=== PATIENT | male | born 1995 | race Caucasian/White ===

== ENCOUNTER 2022-03-27 18:04 | Emergency (ER) | payer SELFPAY ==
[~2022-03-27] VITALS: Ht 172.7 cm; Wt 63.5 kg
--- NOTE | 2022-03-27 18:23 | ED Abdominal Pain ---
General Stated Complaint: ABD PAIN Source of Information: Patient History of Present Illness Date Seen by Provider: Mar 27, 2022 Time Seen by Provider: 18:12 Initial Comments PT ARRIVES VIA POV FROM HOME IN [place], WITH FATHER AND C/O LEFT UPPER QUADRANT PAIN X 1 YEAR--PT IS NOT HAVING ANY PAIN AT THIS TIME. PAIN HAS BEEN WORSE X 2 WEEKS, AND HAS BEEN HAVING "DIARRHEA" X 2 WEEKS STATES HE IS HAVING 1-2 "SOFT" FORMED STOOLS A DAY--THIS IS WHAT HE IS CALLING "DIARRHEA" --NO WATERY STOOLS, AND NO BLACK/BLOODY/TARRY STOOLS PAIN AND DIARRHEA ARE WORSE WITH EATING HAD SOUP AT NOON, NO FOOD SINCE THEN NO NAUSEA/VOMITING NO FEVER NO URINARY SYMPTOMS PT HAS BEEN SEEING DR. ESTEVEZ IN [place] FOR THIS PROBLEM AND HAS HAD AN ULTRASOUND OF HIS GALLBLADDER IN DECEMBER IN [place]--WHICH WAS NORMAL AND DID NOT SHOW ANY STONES, PER PT, AND HAD AN EGD DONE BY DR. ESTEVEZ. HE HAS BEEN REFERRED TO DR. KAPOOR, BUT NO APPOINTMENT HAS BEEN MADE YET. PT HAD BEEN ON PRILOSEC, BUT HAS NOT TAKEN ANY FOR A MONTH--DID NOT IMPROVE SYMPTOMS. STATES HE HAS DONE 2 "GALL BLADDER FLUSHES"--FIRST TIME WAS A MONTH AGO, AND ANOTHER ONE 2 WEEKS AGO THESE CONSIST OF DRINKING EPSOM SALTS, THEN OLIVE OIL, THEN GRAPEFRUIT JUICE STATES HE "PASSED 10 GALLSTONES" RECTALLY AFTER DOING THIS, BUT NO IMPROVEMENT IN HIS SYMPTOMS PT HAS NOT HAD ANY PRIOR MEDICAL PROBLEMS OR ANY SURGERIES. PCP: DR. ESTEVEZ IN [place], [place] Allergies and Home Medications Allergies Coded Allergies: No Known Drug Allergies (Unverified , 03/27/22) Patient Home Medication List Dicyclomine HCl (Dicyclomine HCl) 20 Mg Tablet, 20 MG PO Q6H Prescribed by: PEDRITO HUSTON on 03/27/221919 L. Acidophilus/Pectin, [place] (Acidophilus Capsule) 7.5 Mg (30 Million Cell)-100 Mg Capsule, 2 EACH PO QID Prescribed by: PEDRITO HUTSON on 03/27/221919 Review of Systems Review of Systems Constitutional: no symptoms reported Respiratory: No Symptoms Reported Cardiovascular: No Symptoms Reported Gastrointestinal: See HPI, Abdominal Pain, Diarrhea Genitourinary: No Symptoms Reported Musculoskeletal: no symptoms reported Skin: no symptoms reported Psychiatric/Neurological: No Symptoms Reported Endocrine: No Symptoms Reported Hematologic/Lymphatic: No Symptoms Reported Past Evhmdyl-Qxwora-Hzqdyr Hx Patient Social History Tobacco Use?: No Smoking Status: Never a Smoker Substance use?: No Alcohol Use?: No Past Medical History Surgeries: Yes (EGD) Respiratory: No Cardiac: No Neurological: No Genitourinary: No Gastrointestinal: Yes (ABDOMINAL PAIN X 1 YEAR-NO DX) Musculoskeletal: No Endocrine: No HEENT: No Cancer: No Psychosocial: No Integumentary: No Blood Disorders: No Physical Exam Vital Signs Vital Signs - First Documented 03/27/22 18:08 Temp 36.8 Pulse 68 Resp 16 B/P (MAP) 133/75 (94) Pulse Ox 98 O2 Delivery Room Air Capillary Refill : Height/Weight/BMI Height: '" Weight: lbs. oz. kg; BMI Method: General Appearance: WD/WN, no apparent distress, thin, other (WALKS UPRIGHT AND MOVES WITHOUT DIFFICULTY; FILTHY AND [id number]) HEENT: PERRL/EOMI; No scleral icterus (R), No scleral icterus (L), No pale conjunctivae (R), No pale conjunctivae (L) Neck: normal inspection Respiratory: normal breath sounds, no respiratory distress, no accessory muscle use Cardiovascular: regular rate, rhythm, no edema, no murmur Gastrointestinal: normal bowel sounds, non tender, soft, no organomegaly, no pulsatile mass; No distended, No guarding, No rebound, No tenderness, No hernia, No mass Extremities: normal inspection Back: no CVA tenderness 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, no motor/sensory deficits, alert, normal mood/affect, oriented x 3 Skin: normal color, warm/dry Progress/Results/Core Measures Results/Orders Lab Results Laboratory Tests Test 03/27/22 18:15 03/27/22 19:06 Range/Units White Blood Count 6.8 4.3-11.0 10^3/uL Red Blood Count 5.12 4.30-5.52 10^6/uL Hemoglobin 15.9 13.3-17.7 g/dL Hematocrit 45 40-54 % Mean Corpuscular Volume 88 80-99 fL Mean Corpuscular Hemoglobin 31 25-34 pg Mean Corpuscular Hemoglobin Concent 35 32-36 g/dL Red Cell Distribution Width 12.3 10.0-14.5 % Platelet Count 206 130-400 10^3/uL Mean Platelet Volume 10.0 9.0-12.2 fL Immature Granulocyte % (Auto) 0 % Neutrophils (%) (Auto) 64 42-75 % Lymphocytes (%) (Auto) 26 12-44 % Monocytes (%) (Auto) 8 0-12 % Eosinophils (%) (Auto) 2 0-10 % Basophils (%) (Auto) 1 0-10 % Neutrophils # (Auto) 4.4 1.8-7.8 10^3/uL Lymphocytes # (Auto) 1.7 1.0-4.0 10^3/uL Monocytes # (Auto) 0.5 0.0-1.0 10^3/uL Eosinophils # (Auto) 0.1 0.0-0.3 10^3/uL Basophils # (Auto) 0.1 0.0-0.1 10^3/uL Immature Granulocyte # (Auto) 0.0 0.0-0.1 10^3/uL Sodium Level 140 135-145 MMOL/L Potassium Level 4.1 3.6-5.0 MMOL/L Chloride Level 104 98-107 MMOL/L Carbon Dioxide Level 24 21-32 MMOL/L Anion Gap 12 5-14 MMOL/L Blood Urea Nitrogen 12 7-18 MG/DL Creatinine 0.85 0.60-1.30 MG/DL Estimat Glomerular Filtration Rate 124 BUN/Creatinine Ratio 14 Glucose Level 96 70-105 MG/DL Calcium Level 9.6 8.5-10.1 MG/DL Corrected Calcium 9.2 8.5-10.1 MG/DL Magnesium Level 2.0 1.6-2.4 MG/DL Total Bilirubin 0.5 0.1-1.0 MG/DL Aspartate Amino Transf (AST/SGOT) 22 5-34 U/L Alanine Aminotransferase (ALT/SGPT) 20 0-55 U/L Alkaline Phosphatase 64 40-136 U/L C-Reactive Protein High Sensitivity 0.08 0.00-0.50 MG/DL Total Protein 7.1 6.4-8.2 GM/DL Albumin 4.5 3.2-4.5 GM/DL Amylase Level 96 25-125 U/L Lipase 163 H 8-78 U/L Urine Color YELLOW Urine Clarity CLEAR Urine pH 7.5 5-9 Urine Specific [place] 1.010 L 1.016-1.022 Urine Protein NEGATIVE NEGATIVE Urine Glucose (UA) NEGATIVE NEGATIVE Urine Ketones NEGATIVE NEGATIVE Urine Nitrite NEGATIVE NEGATIVE Urine Bilirubin NEGATIVE NEGATIVE Urine Urobilinogen 0.2 < = 1.0 MG/DL Urine Leukocyte Esterase NEGATIVE NEGATIVE Urine RBC (Auto) NEGATIVE NEGATIVE Urine RBC NONE /HPF Urine WBC NONE /HPF Urine Crystals PRESENT H /LPF Urine Amorphous Sediment MOD DENG PHOSPHATE H /LPF Urine Bacteria NEGATIVE /HPF Urine Casts NONE /LPF Urine Mucus NEGATIVE /LPF Urine Culture Indicated NO My Orders Orders - PEDRITO HUSTON DO Ed Iv/Invasive Line Start (03/27/22 18:16) Ct Abdomen/Pelvis W (03/27/22 18:16) Amylase (03/27/22 18:16) Cbc With Automated Diff (03/27/22 18:16) Comprehensive Metabolic Panel (03/27/22 18:16) Hs C Reactive Protein (03/27/22 18:16) Lipase (03/27/22 18:16) Magnesium (03/27/22 18:16) Ua Culture If Indicated (03/27/22 18:16) Erythrocyte Sedimentation Rate (03/27/22 18:16) Ed Iv/Invasive Line Start (03/27/22 18:16) Ed Iv/Invasive Line Start (03/27/22 18:16) Lactated Ringers (Lr 1000 Ml Iv Solution (03/27/22 18:30) Iohexol Injection (Omnipaque 350 Mg/Ml 1 (03/27/22 18:30) Ns (Ivpb) (Sodium Chloride 0.9% Ivpb Bag (03/27/22 18:30) Medications Given in ED Current Medications Medications Dose Ordered Sig/Be Route Start Time Stop Time Status Last Admin Dose Admin Iohexol 100 ml ONCE ONCE IV 03/27/22 18:30 03/27/22 18:32 DC 03/27/22 18:32 80 ML Lactated Ringer's 1,000 ml @ 0 mls/hr Q0M ONCE IV 03/27/22 18:30 03/27/22 18:32 DC 03/27/22 18:46 0 MLS/HR Sodium Chloride 100 ml ONCE ONCE IV 03/27/22 18:30 03/27/22 18:32 DC 03/27/22 18:32 80 ML Vital Signs/I&O 03/27/22 18:08 Temp 36.8 Pulse 68 Resp 16 B/P (MAP) 133/75 (94) Pulse Ox 98 O2 Delivery Room Air Progress Progress Note : Progress Note GIVEN IV FLUIDS NO DIARRHEA OR PAIN OR SYMPTOMS OF ANY KIND DURING ER STAY Diagnostic Imaging Comments CT ABDOMEN/PELVIS--PER RADIOLOGIST REPORT AT 1904 FINDINGS: Lung bases demonstrate no finding of pneumonia or edema. There is no pleural or pericardial effusion. The liver demonstrates no evidence of a focal intrahepatic abnormality. The gallbladder is nondistended without radiodense stone or finding of biliary dilatation. The portal veins are patent. Pancreas unremarkable without finding of adjacent fluid or fat stranding. The spleen is normal in size. There is no adrenal mass. The kidneys enhance normally and appear nonobstructed. The stomach is nondistended. There is no finding of abnormal small or large bowel dilation demonstrated. There is moderate stool within the colon without finding of colonic thickening or pericolonic fat stranding. The appendix is normal. The urinary bladder is unremarkable. There is no pelvic free fluid. There is no finding of free air or abscess. There is no pathologic adenopathy. The aorta is normal in caliber. No findings of an acute or suspicious osseous abnormality. IMPRESSION: 1. No CT finding of an acute inflammatory or obstructive process within the abdomen or pelvis. 2. No finding of bowel obstruction, appendicitis or diverticulitis. 3. No hydronephrosis or biliary dilatation. 4. No free fluid, free air or focal inflammation within the omentum or mesentery. Reviewed: Reviewed by Me Departure Impression Primary Impression: Chronic abdominal pain Additional Impression: Change in consistency of stool Disposition: 01 HOME, SELF-CARE Condition: Stable Departure-Patient Inst. Referrals: JUVENTINO KAPOOR DO NO,LOCAL PHYSICIAN (PCP) Primary Care Physician Patient Instructions: Abdominal Pain, Adult ED Add. Discharge Instructions: CLEAR LIQUIDS--WATER, BROTH, JELLO, GATORADE BRATS DIET--BANANAS, RICE, APPLESAUCE, TOAST, SALTINES FOLLOW UP WITH DR. KAPOOR NEXT WEEK--CALL ON TUESDAY MORNING TO SCHEDULE APPOINTMENT. Scripts Dicyclomine HCl (Dicyclomine HCl) 20 Mg Tablet 20 MG PO Q6H for Abdominal Pain, #20 TAB Prov: PEDRITO HUSTON DO 03/27/22 L. Acidophilus/Pectin, [place] (Acidophilus Capsule) 7.5 Mg (30 Million Cell)-100 Mg Capsule 2 EACH PO QID, #40 CAP Prov: PEDRITO HUSTON DO 03/27/22 PEDRITO HUSTON DO Mar 27, 2022 18:23
[2022-03-27 18:30] LABS: BASOPHILS # (AUTO) 0.1 10^3/uL (0.0-0.1); BASOPHILS % (AUTO) 1 % (0-10); EOSINOPHILS # (AUTO) 0.1 10^3/uL (0.0-0.3); EOSINOPHILS % (AUTO) 2 % (0-10); HEMATOCRIT 45 % (40-54); HEMOGLOBIN 15.9 g/dL (13.3-17.7); LYMPHOCYTES # (AUTO) 1.7 10^3/uL (1.0-4.0); LYMPHOCYTES % (AUTO) 26 % (12-44); MEAN CORPUSCULAR HEMOGLOBIN 31 pg (25-34); MEAN CORPUSCULAR HGB CONC 35 g/dL (32-36); MEAN CORPUSCULAR VOLUME 88 fL (80-99); MONOCYTES # (AUTO) 0.5 10^3/uL (0.0-1.0); MONOCYTES % (AUTO) 8 % (0-12); NEUTROPHILS # (AUTO) 4.4 10^3/uL (1.8-7.8); NEUTROPHILS % (AUTO) 64 % (42-75); PLATELET COUNT 206 10^3/uL (130-400); WHITE BLOOD COUNT 6.8 10^3/uL (4.3-11.0)
[2022-03-27] MEDS ORDERED: NS 100 ML (IVPB) BAG IV ONE (18:30)
[2022-03-27] MEDS ORDERED: LACTATED RINGERS 1,000 ML IV ONE (18:30)
[2022-03-27] MEDS ORDERED: IOHEXOL 350 MG/ML 100 ML (OMNIPAQUE 350) VIAL IV ONE (18:30)
[2022-03-27 18:48] LABS: ALBUMIN 4.5 GM/DL (3.2-4.5); BILIRUBIN,TOTAL 0.5 MG/DL (0.1-1.0); CALCIUM 9.6 MG/DL (8.5-10.1); CREATININE SERUM 0.85 MG/DL (0.60-1.30); POTASSIUM 4.1 MMOL/L (3.6-5.0); TOTAL PROTEIN 7.1 GM/DL (6.4-8.2)
--- NOTE | 2022-03-27 18:53 | Diagnostic Imaging Report ---
PROCEDURE: CT abdomen and pelvis with contrast. TECHNIQUE: Multiple contiguous axial images were obtained through the abdomen and pelvis after administration of intravenous contrast. Auto Exposure Controls were utilized during the CT exam to meet ALARA standards for radiation dose reduction. All CT scans use one or more of the following dose optimizing techniques: automated exposure control, MA and/or KvP adjustment based on patient size and exam type or iterative reconstruction. INDICATION: Left upper quadrant pain and diarrhea. COMPARISON: No comparison available. FINDINGS: Lung bases demonstrate no finding of pneumonia or edema. There is no pleural or pericardial effusion. The liver demonstrates no evidence of a focal intrahepatic abnormality. The gallbladder is nondistended without radiodense stone or finding of biliary dilatation. The portal veins are patent. Pancreas unremarkable without finding of adjacent fluid or fat stranding. The spleen is normal in size. There is no adrenal mass. The kidneys enhance normally and appear nonobstructed. The stomach is nondistended. There is no finding of abnormal small or large bowel dilation demonstrated. There is moderate stool within the colon without finding of colonic thickening or pericolonic fat stranding. The appendix is normal. The urinary bladder is unremarkable. There is no pelvic free fluid. There is no finding of free air or abscess. There is no pathologic adenopathy. The aorta is normal in caliber. No findings of an acute or suspicious osseous abnormality. IMPRESSION: 1. No CT finding of an acute inflammatory or obstructive process within the abdomen or pelvis. 2. No finding of bowel obstruction, appendicitis or diverticulitis. 3. No hydronephrosis or biliary dilatation. 4. No free fluid, free air or focal inflammation within the omentum or mesentery. Dictated by: Dictated on workstation # [id number]
[2022-03-27 19:11] LABS: BILIRUBIN,URINE NEGATIVE (NEGATIVE); CLARITY,URINE CLEAR; COLOR,URINE YELLOW; GLUCOSE, URINE (UA) NEGATIVE (NEGATIVE); KETONES,URINE NEGATIVE (NEGATIVE); LEUKOCYTE ESTERASE ,URINE NEGATIVE (NEGATIVE); NITRITE,URINE NEGATIVE (NEGATIVE); PH,URINE 7.5 (5-9); PROTEIN,URINE NEGATIVE (NEGATIVE)
[2022-03-27 19:16] LABS: AMORPHOUS SEDIMENT,UR MOD AMOR PHOSPHATE /LPF; BACTERIA,URINE NEGATIVE /HPF
[2022-03-27] MEDS ORDERED: L. A1CAP11 PO (19:20)
[2022-03-27] MEDS ORDERED: DICY20TA PO (19:20)
[2022-03-27 19:28] LABS: ERYTHROCYTE SEDIMENTATION RATE 1 MM/HR (0-15)
[2022-03-27 19:44] VITALS: BP 123/74
== END 2022-03-27 19:44 | disposition home or self-care (01) ==
LOC: ER 18:06
DX: G89.29 Other chronic pain (principal); R10.12 Left upper quadrant pain; R19.4 Change in bowel habit; Z28.310 Unvaccinated for COVID-19
CPT/HCPCS: 36415; 74177; 80053; 81000; 82150; 83690; 83735; 85025; 85652; 86141

== ENCOUNTER → 2022-04-01 | Outpatient (CLI) | payer OTHER ==
[~2022-04-01] MED LIST: CATHETER FLUSH 10 ML SYR IVP PRN; DICY20TA PO; L. A1CAP11 PO; ONDA4TAB11 SL; PANT40TA2 PO; SUCR1TAB36 PO
--- NOTE | 2022-04-01 09:13 | Diagnostic Imaging Report ---
INDICATION: Epigastric pain. FINDINGS: 5 mCi tech 99M Choletec was given IV. The FINDINGS: There is prompt uptake by the liver. Gallbladder visualizes in a normal fashion. There is free flow of isotope into the small bowel. Following Ensure meal ejection fraction is calculated to be 35% at 60 minutes. IMPRESSION: Normal hepatobiliary study. Dictated by: Dictated on workstation # [id number]
== END ==
LOC: CARD 06:42
PROVIDERS: ATTEND Surgery
DX: R10.13 Epigastric pain (principal)
CPT/HCPCS: 78227; A9537

== ENCOUNTER 2022-04-06 00:32 | Emergency (ER) | payer OTHER ==
[~2022-04-06] VITALS: Ht 172.7 cm; Wt 62.3 kg
[~2022-04-06 00:32] MED LIST changes: -ONDA4TAB11 SL; -PANT40TA2 PO; -SUCR1TAB36 PO
[2022-04-06] MEDS ORDERED: ONDANSETRON 4 MG/2 ML (SDV) Z0FRAN IVP ONE (01:15)
[2022-04-06] MEDS ORDERED: LACTATED RINGERS 1,000 ML IV ONE (01:15)
[2022-04-06] MEDS ORDERED: ANTACID SUSP 30 ML UDC (MYLANTA) PO ONE (01:30)
[2022-04-06] MEDS ORDERED: LIDOCAINE 2% VISCOUS 15 ML UDC PO ONE (01:30)
[2022-04-06 01:33] LABS: BASOPHILS # (AUTO) 0.1 10^3/uL (0.0-0.1); BASOPHILS % (AUTO) 1 % (0-10); EOSINOPHILS # (AUTO) 0.2 10^3/uL (0.0-0.3); EOSINOPHILS % (AUTO) 3 % (0-10); HEMATOCRIT 45 % (40-54); LYMPHOCYTES # (AUTO) 2.2 10^3/uL (1.0-4.0); LYMPHOCYTES % (AUTO) 31 % (12-44); MEAN CORPUSCULAR HEMOGLOBIN 31 pg (25-34); MEAN CORPUSCULAR HGB CONC 35 g/dL (32-36); MEAN CORPUSCULAR VOLUME 88 fL (80-99); MONOCYTES # (AUTO) 0.6 10^3/uL (0.0-1.0); MONOCYTES % (AUTO) 8 % (0-12); NEUTROPHILS # (AUTO) 3.9 10^3/uL (1.8-7.8); NEUTROPHILS % (AUTO) 57 % (42-75); PLATELET COUNT 214 10^3/uL (130-400)
[2022-04-06 01:48] LABS: ALBUMIN 4.6 GM/DL (3.2-4.5); CHLORIDE 103 MMOL/L (98-107); POTASSIUM 3.7 MMOL/L (3.6-5.0); SODIUM 137 MMOL/L (135-145)
[2022-04-06 01:49] LABS: CALCIUM 9.7 MG/DL (8.5-10.1)
[2022-04-06 01:50] LABS: GLUCOSE 91 MG/DL (70-105); TOTAL PROTEIN 7.3 GM/DL (6.4-8.2)
[2022-04-06 01:51] LABS: CARBON DIOXIDE 24 MMOL/L (21-32)
[2022-04-06 01:52] LABS: BILIRUBIN,TOTAL 0.7 MG/DL (0.1-1.0)
[2022-04-06 01:54] LABS: ALKALINE PHOSPHATASE 62 U/L (40-136); CREATININE SERUM 0.98 MG/DL (0.60-1.30); GFR ESTIMATED 110
[2022-04-06 01:55] LABS: BUN/CREATININE RATIO 15
[2022-04-06 01:57] LABS: ALANINE AMINOTRANSFERASE 18 U/L (0-55); LIPASE 19 U/L (8-78)
[2022-04-06] MEDS ORDERED: PANT40TA2 PO (02:37)
[2022-04-06] MEDS ORDERED: SUCR1TAB36 PO (02:37)
[2022-04-06] MEDS ORDERED: ONDA4TAB11 SL (02:37)
--- NOTE | 2022-04-06 02:40 | ED Abdominal Pain ---
General Chief Complaint: General Problems/Pain Stated Complaint: GALLBLADDER PAIN Nursing Triage Note: Pt arrival to er stating that he just feels sick. Patient is looking for answers on when he will have gall bladder removed. Denies pain, vomiting, or change in bowels. Pt states that he just feels tired and has no appetite. Pt had hydascan done on 04/01 and was told that his gallbladder is working 35% and needs to come out. Source of Information: Patient Exam Limitations: No Limitations History of Present Illness Date Seen by Provider: Apr 06, 2022 Time Seen by Provider: 01:09 Initial Comments This 27-year-old young man presents to the emergency room with upper abdominal pain, nausea, and pain that radiates between his shoulder blades and toward the left shoulder. Pain is seems to be worse at varying times after eating. He does occasionally have diarrhea as well. He has had some difficulty for about a year but has been worse in recent weeks. He has been evaluated by Dr. Kapoor. Imaging has been obtained with CT scan and hepatobiliary scan. Hepatobiliary scan was borderline with ejection fraction of 35%. He reports Dr. Kapoor has indicated cholecystectomy is appropriate, and they are working on scheduling this. Symptoms seem to be waxing and waning. Patient is not in distress at this time. On prior lab evaluation he had a mildly elevated lipase. Allergies and Home Medications Allergies Coded Allergies: No Known Drug Allergies (Unverified , 03/27/22) Patient Home Medication List Home Medication List Reviewed: Yes Dicyclomine HCl (Dicyclomine HCl) 20 Mg Tablet, 20 MG PO Q6H Prescribed by: PEDRITO HUSTON on 03/27/221919 L. Acidophilus/Pectin, [place] (Acidophilus Capsule) 7.5 Mg (30 Million Cell)-100 Mg Capsule, 2 EACH PO QID Prescribed by: PEDRITO HUSTON on 03/27/221919 Ondansetron (Ondansetron Odt) 4 Mg Tab.rapdis, 4 MG SL Q4H PRN for NAUSEA/VOMITING Prescribed by: GILES PRATT on 04/06/22236 Pantoprazole Sodium (Protonix) 40 Mg Tablet.dr, 40 MG PO DAILY Prescribed by: GILES PRATT on 04/06/22236 Sucralfate (Carafate) 1 Gram Tablet, 1 GM PO QID Prescribed by: GILES PRATT on 04/06/22 0237 Review of Systems Review of Systems Constitutional: no symptoms reported EENTM: No Symptoms Reported Respiratory: No Symptoms Reported Cardiovascular: No Symptoms Reported Gastrointestinal: See HPI Genitourinary: No Symptoms Reported Musculoskeletal: no symptoms reported Skin: no symptoms reported Psychiatric/Neurological: No Symptoms Reported Endocrine: No Symptoms Reported Past Fqcizgm-Qytjte-Scnmus Hx Patient Social History Tobacco Use?: Yes Tobacco type used: Cigars, Pipe Smoking Status: Current Everyday Smoker Use of E-Cig and/or Vaping dev: No Substance use?: No Alcohol Use?: No Pt feels they are or have been: No Immunizations Up To Date Influenza Vaccine Up-to-Date: No; Not Current Past Medical History Surgeries: Yes (EGD) Respiratory: No Cardiac: No Neurological: No Genitourinary: No Gastrointestinal: Yes (ABDOMINAL PAIN X 1 YEAR-NO DX) Musculoskeletal: No Endocrine: No HEENT: No Cancer: No Psychosocial: No Integumentary: No Blood Disorders: No Physical Exam Vital Signs Vital Signs - First Documented 04/06/22 00:46 Temp 36.8 Pulse 56 Resp 16 B/P (MAP) 136/84 (101) Pulse Ox 99 O2 Delivery Room Air Capillary Refill : Less Than 3 Seconds Height/Weight/BMI Height: '" Weight: lbs. oz. 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, no motor/sensory deficits, alert, normal mood/affect, oriented x 3 Skin: normal color, warm/dry Progress/Results/Core Measures Results/Orders Lab Results Laboratory Tests Test 04/06/22 01:25 Range/Units White Blood Count 7.0 4.3-11.0 10^3/uL Red Blood Count 5.19 4.30-5.52 10^6/uL Hemoglobin 16.0 13.3-17.7 g/dL Hematocrit 45 40-54 % Mean Corpuscular Volume 88 80-99 fL Mean Corpuscular Hemoglobin 31 25-34 pg Mean Corpuscular Hemoglobin Concent 35 32-36 g/dL Red Cell Distribution Width 11.9 10.0-14.5 % Platelet Count 214 130-400 10^3/uL Mean Platelet Volume 10.0 9.0-12.2 fL Immature Granulocyte % (Auto) 0 % Neutrophils (%) (Auto) 57 42-75 % Lymphocytes (%) (Auto) 31 12-44 % Monocytes (%) (Auto) 8 0-12 % Eosinophils (%) (Auto) 3 0-10 % Basophils (%) (Auto) 1 0-10 % Neutrophils # (Auto) 3.9 1.8-7.8 10^3/uL Lymphocytes # (Auto) 2.2 1.0-4.0 10^3/uL Monocytes # (Auto) 0.6 0.0-1.0 10^3/uL Eosinophils # (Auto) 0.2 0.0-0.3 10^3/uL Basophils # (Auto) 0.1 0.0-0.1 10^3/uL Immature Granulocyte # (Auto) 0.0 0.0-0.1 10^3/uL Sodium Level 137 135-145 MMOL/L Potassium Level 3.7 3.6-5.0 MMOL/L Chloride Level 103 98-107 MMOL/L Carbon Dioxide Level 24 21-32 MMOL/L Anion Gap 10 5-14 MMOL/L Blood Urea Nitrogen 15 7-18 MG/DL Creatinine 0.98 0.60-1.30 MG/DL Estimat Glomerular Filtration Rate 110 BUN/Creatinine Ratio 15 Glucose Level 91 70-105 MG/DL Calcium Level 9.7 8.5-10.1 MG/DL Corrected Calcium 8.5-10.1 MG/DL Total Bilirubin 0.7 0.1-1.0 MG/DL Aspartate Amino Transf (AST/SGOT) 18 5-34 U/L Alanine Aminotransferase (ALT/SGPT) 18 0-55 U/L Alkaline Phosphatase 62 40-136 U/L C-Reactive Protein High Sensitivity 0.04 0.00-0.50 MG/DL Total Protein 7.3 6.4-8.2 GM/DL Albumin 4.6 H 3.2-4.5 GM/DL Lipase 19 8-78 U/L My Orders Orders - GILES ZIMMERMAN MD Cbc With Automated Diff (04/06/22 01:09) Comprehensive Metabolic Panel (04/06/22 01:09) Hs C Reactive Protein (04/06/22 01:09) Lipase (04/06/22 01:09) Ed Iv/Invasive Line Start (04/06/22 01:09) Lactated Ringers (Lr 1000 Ml Iv Solution (04/06/22 01:15) Ondansetron Injection (Zofran Injectio (04/06/22 01:15) Lidocaine 2% Viscous 15 Ml (Xylocaine Vi (04/06/22 01:30) Antacid Suspension (Mylanta Suspension (04/06/22 01:30) Pantoprazole Injection (Protonix Injecti (04/06/22 02:45) Medications Given in ED Current Medications Medications Dose Ordered Sig/Be Route Start Time Stop Time Status Last Admin Dose Admin Al Hydrox/Mg Hydrox/Simethicone 30 ml ONCE ONCE PO 04/06/22 01:30 04/06/22 01:32 DC 04/06/22 01:37 30 ML Lactated Ringer's 1,000 ml @ 0 mls/hr Q0M ONCE IV 04/06/22 01:15 04/06/22 01:16 DC 04/06/22 01:33 999 MLS/HR Lidocaine HCl 15 ml ONCE ONCE PO 04/06/22 01:30 04/06/22 01:32 DC 04/06/22 01:37 15 ML Ondansetron HCl 8 mg ONCE ONCE IVP 04/06/22 01:15 04/06/22 01:16 DC 04/06/22 01:33 8 MG Pantoprazole 40 mg ONCE ONCE IV 04/06/22 02:45 04/06/22 02:47 DC 04/06/22 02:51 40 MG Vital Signs/I&O 04/06/22 04/06/22 00:46 03:00 Temp 36.8 Pulse 56 63 Resp 16 14 B/P (MAP) 136/84 (101) 121/70 Pulse Ox 99 98 O2 Delivery Room Air Room Air Blood Pressure Mean: 101 Progress Progress Note : Progress Note Patient was hydrated with IV fluids. Lab work-up was unremarkable. Zofran was given for nausea. Patient still had some discomfort. GI cocktail was given as a trial and completely relieved his symptoms. I suspected that gastritis/esophagitis is part of his problem in addition to biliary dyskinesia. Patient was disappointed that he was not being admitted for prompt cholecystectomy. I explained that he does not have an urgent or emergent condition requiring immediate surgery. I did discuss the case with Dr. Kapoor who anticipates outpatient surgery being scheduled for Tuesday. Patient was di scharged in good condition with complete relief of his symptoms. Departure Impression Primary Impression: Epigastric pain Additional Impression: Biliary dyskinesia Disposition: HOME, SELF-CARE Condition: Improved Departure-Patient Inst. Decision time for Depature: 02:34 Referrals: JUVENTINO KAPOOR DO NO,LOCAL PHYSICIAN (PCP) Primary Care Physician Patient Instructions: Abdominal Pain, Adult ED, Gallbladder Diet, Gastritis ED Add. Discharge Instructions: While you may have some degree of gallbladder disease, it appears that your symptoms are probably also due to irritation of the stomach and esophagus. Use Carafate (sucralfate) and Protonix as prescribed to help treat this problem. Dissolve or crush the Carafate and mix into about 1 or 2 teaspoons of water to make a slurry. Drink this 30 minutes before eating or drinking at mealtimes and again before bed. Eat a very low fat and low oil diet. Also avoid caffeine, carbonation, citrus fruits and juices, tomato products, mints, chocolate, alcohol, tobacco, spicy foods, NSAID medications such as ibuprofen or naproxen, fatty or greasy foods, eating close to bedtime, or anything else you know irritates your stomach. Use the Zofran (ondansetron) as prescribed for nausea and vomiting. Dr. Kapoor believes your surgery is tentatively scheduled for Tuesday. Please call his office tomorrow morning to confirm that. All discharge instructions reviewed with patient and/or family. Voiced understanding. Scripts Pantoprazole Sodium (Protonix) 40 Mg Tablet. 40 MG PO DAILY, #30 TAB Prov: GILES ZIMMERMAN MD 04/06/22 Ondansetron (Ondansetron Odt) 4 Mg Tab.rapdis 4 MG SL Q4H PRN for NAUSEA/VOMITING, #10 TAB 1 Refill Prov: GILES ZIMMERMAN MD 04/06/22 Sucralfate (Carafate) 1 Gram Tablet 1 GM PO QID, #120 TAB Prov: GILES ZIMMERMAN MD 04/06/22 Copy Copies To 1: JUVENTINO KAPOOR JOSHUA T MD Apr 06, 2022 02:40
[2022-04-06] MEDS ORDERED: PANTOPRAZOLE 40 MG (PROTONIX) VIAL IV ONE (02:45)
[2022-04-06 03:00] VITALS: BP 121/70
== END 2022-04-06 02:59 | disposition home or self-care (01) ==
LOC: EDUNIT# 00:32 → ER 00:35
DX: K82.8 Other specified diseases of gallbladder (principal); F17.290 Nicotine dependence, other tobacco product, uncomplicated; Z28.310 Unvaccinated for COVID-19
CPT/HCPCS: 36415; 80053; 83690; 85025; 86141

== ENCOUNTER → 2022-04-06 | Outpatient (CLI) | payer SELFPAY ==
[~2022-04-06] MED LIST changes: -CATHETER FLUSH 10 ML SYR IVP PRN
== END | disposition home or self-care (01) ==
LOC: PREOP 12:53
PROVIDERS: ATTEND Surgery
DX: Z01.818 Encounter for other preprocedural examination (principal)

== ENCOUNTER 2022-04-09 10:37 | Day surgery (SDC) | payer OTHER ==
[~2022-04-09] VITALS: Ht 172 cm; Wt 62.3 kg
[2022-04-09] VITALS (9 sets, daily range): BP systolic 114–127; BP diastolic 62–78
[~2022-04-09 10:37] MED LIST changes: +ONDA4TAB11 SL; +PANT40TA2 PO; +SUCR1TAB36 PO
[2022-04-09] MEDS: LACTATED RINGERS 1,000 ML IV PRN ×2 (11:00→13:32)
[2022-04-09] MEDS ORDERED: ceFAZolin 2 GM IV Premixed 50 ML IV ONE (11:00)
[2022-04-09] MEDS ORDERED: proPOfol 200 MG/20 ML (DIPRIVAN) VIAL IV ONE (11:32)
[2022-04-09] MEDS ORDERED: LIDOCAINE PF 2% 5 ML (XYLOCAINE) VIAL ONE (11:32)
[2022-04-09] MEDS ORDERED: fentaNYL INJ 100 MCG/2 ML AMP ONE ×2 (11:32→14:16)
[2022-04-09] MEDS ORDERED: ROCURONIUM 50 MG/5 ML (ZEMURON) VIAL IV ONE (11:32)
[2022-04-09] MEDS ORDERED: MIDAZOLAM 2 MG/2 ML (VERSED) VIAL ONE (11:33)
[2022-04-09] MEDS ORDERED: LIDOCAINE/EPI 2% 1:200,00 (XYLOCAINE) 20 ML VIAL ONE (12:12)
--- NOTE | 2022-04-09 12:43 | Progress Note-Pre Operative ---
Pre-Operative Progress Note Date of Available H&P: Apr 01, 2022 Date H&P Reviewed: Apr 09, 2022 Time H&P Reviewed: 12:42 History & Physical: H&P Reviewed, Patient Examed, Changes noted below Changes from last HP gerd as well. we discussed risks and benefits of adding on EGD and wishes to proceed. Pre-Operative Diagnosis: epigastric pain, biliary dyskinesia JUVENTINO KAPOOR DO Apr 09, 2022 12:43
[2022-04-09] MEDS ORDERED: GLYCOPYRROLATE 0.2 MG/ML (ROBINUL) 2 ML VIAL ONE ×2 (13:33→13:53)
[2022-04-09] MEDS ORDERED: NEOSTIGMINE (BLOXIVERZ ) 1 MG/1ML 10 ML VIAL ONE (13:52)
[2022-04-09] MEDS ORDERED: SEVOFLURANE (ULTANE) 15 ML INHAL SOLN ONE (14:00)
[2022-04-09] MEDS ORDERED: ACHD5005 PO (14:02)
--- NOTE | 2022-04-09 14:02 | Progress Note-Post Operative ---
Post-Operative Progess Note Surgeon (s)/Costing Manager (s) Surgeon JUVENTINO KAPOOR DO Costing Manager: Dr. Noe to assist in retraction dissection and closure. Pre-Operative Diagnosis epigastric pain, biliary dyskinesia Post-Operative Diagnosis biliary dyskinesia, gastritis Procedure & Operative Findings Date of Procedure 04/09/22 Procedure Performed/Findings lap anil c attempted cholangiogram, egd c biopsies Anesthesia Type general Estimated Blood Loss Estimated blood loss (mL): minimal Specimens/Packing Specimens Removed gallbladder, antrum, ge JUVENTINO KAPOOR DO Apr 09, 2022 14:02
--- NOTE | 2022-04-09 14:04 | Discharge Inst-Simple/Standard ---
Discharge Inst-Standard Discharge Medications New, Converted or Re-Newed RX: Transmitted to Pharmacy Patient Instructions/Follow Up Plan of Care/Instructions/FU: 2 weeks Fabricio Activity as Tolerated: No Discharge Diet: Regular Diet Other Inst to Patient Follow up Appt: Make appointment for 2 weeks. Instructions: No lifting greater than 10 pounds. No strenuous activity. May shower in 24 hours, no tub bath or soaking. Use incentive spirometer at home as directed. No Smoking Skin/Wound Care: You have special glue over incision, it will fall off on it's own. Symptoms to Report: Appetite Changes, Extremity Discoloration, Numbness/Tingling, Swelling Increased, Bleeding Excessive, Eyesight Changes, Pain Increased, Urine Color Change, Constipation(Persistent), Fever over 101 degree F, Pain/Pressure in chest, Urinating Difficulty, Cough Up/Vomit Blood, Heart Beat Irreg/Pounding, Pain/Pressure in jaw, Vaginal Bleeding Increase, Cramps in feet or legs, Lightheadedness, Pain/Pressure in shoulder, Diarrhea(Persistent), Memory Changes Suddenly, Questions/Concerns, Weight gain consecutive days, Dizziness/Fainting, Nausea/Vomiting, Shortness of Breath, Weight gain over 2 pounds. If eyes or skin turn yellow notify physician. If questions or concerns contact your physician Or seek help at emergency department. JUVENTINO KAPOOR DO Apr 09, 2022 14:04
[2022-04-09] MEDS ORDERED: PROMETHAZINE INJ 25 MG/ML (PHENERGAN) AMP IVP ONE (14:15)
[2022-04-09] MEDS ORDERED: ONDANSETRON 4 MG/2 ML (SDV) Z0FRAN IVP PRN (14:15)
[2022-04-09] MEDS ORDERED: fentaNYL INJ 100 MCG/2 ML AMP IVP ONE (14:15)
--- NOTE | 2022-04-09 14:22 | Anesthesia-General Post-Op ---
General Patient Condition Mental Status/LOC: Same as Preop Cardiovascular: Satisfactory Nausea/Vomiting: Absent Respiratory: Satisfactory Pain: Controlled Complications: Absent Post Op Complications Complications None Follow Up Care/Instructions Patient Instructions None needed. Anesthesia/Patient Condition Patient Condition Patient is doing well, no complaints, stable vital signs, no apparent adverse anesthesia problems. No complications reported per nursing. BRANDON THOMPSON CRNA Apr 09, 2022 14:22
[2022-04-09] MEDS ORDERED: HYDROcodone/APAP 5 MG/325 MG (LORTAB) TAB PO ONE (15:15)
[2022-04-09] MEDS ORDERED: HYDROcodone/APAP 5 MG/325 MG (LORTAB) TAB ONE (15:19)
--- NOTE | 2022-04-10 00:46 | OPERATIVE REPORT ---
DATE OF SERVICE: 04/09/2022 PREOPERATIVE DIAGNOSES: Epigastric abdominal pain, biliary dyskinesia. POSTOPERATIVE DIAGNOSES: Biliary dyskinesia, gastritis. PROCEDURE: Laparoscopic cholecystectomy with attempted intraoperative cholangiogram. EGD with biopsies. SURGEON: Juventino Regalado DO HARPOONER: Dr. Noe, assisted in retraction, dissection and closure. ANESTHESIA: General. ESTIMATED BLOOD LOSS: Minimal. COMPLICATIONS: None. INDICATIONS: The patient is a 27-year-old male who was having findings consistent with biliary dyskinesia. He also had some symptoms of GERD and since having epigastric abdominal pain, we discussed doing an EGD at the same time. He understands and wishes to proceed. Consent was signed in the chart. DESCRIPTION OF PROCEDURE: The patient was taken to operating suite, was prepped and draped in sterile fashion. Timeout was performed. Local anesthetic was infiltrated at the umbilicus, 11 blade scalpel was used to make a skin incision. Cautery was used to dissect down to the fascia, which was then scored and elevated. The abdomen was then entered. An 0 Vicryl was placed in a [id number] fashion for closure at the end of the case. A reyes trocar was inserted and pneumoperitoneum was achieved. Under direct visualization of the laparoscope, a 5 mm trocar was placed in the subxiphoid region and two 5 mm trocars were placed in the right upper quadrant. Gallbladder was grasped and elevated. The cystic duct and cystic artery were then dissected out. Clips were placed on the proximal and distal portion of the cystic artery and this was transected. Cystic duct was further dissected out. Clip was placed on distal portion. The duct was then partially transected. Arrow catheter was unable to be inserted. Multiple attempts were made. This was also dilated with a [place], but the catheter was still unable to be inserted. Therefore, clips were placed on the proximal portion of the cystic duct was then transected. Hook cautery used to dissect the gallbladder from the gallbladder fossa achieving hemostasis. Once removed, it was placed in an Endobag and removed through 12 mm trocar site. The abdomen was then irrigated and suctioned. Hemostasis was achieved. The trocars were removed. The abdomen was desufflated. The 12 mm fascial defect was then closed at the umbilicus using the previously placed 0 Vicryl. Skin was then closed using 4-0 Monocryl in subcuticular fashion. The area was washed and dried and Skin Affix was placed over the incisions. The gastroscope was inserted in mouth, down the esophagus, stomach and into the duodenum without difficulty. No polyps, masses or ulcerations within the duodenum. Scope was slowly retracted back into the stomach where it was further insufflated. Gastritis appearance. Biopsy of the antrum was obtained. Scope was retroflexed noting no other pathology. Scope was returned to its normal position, slowly withdrawn to distal esophagus. Biopsy of the GE junction was obtained. No polyps, masses or ulcerations. Scope was slowly retracted back until completely removed. The patient tolerated procedure well without any complications, taken to recovery room in stable condition. RECOMMENDATIONS: The patient will continue on current medications. We will follow up on biopsies and routine gallbladder postop care. Job ID: [id number] DocumentID: [id number] Dictated Date: 04/09/2022 14:09:18 Radio Survey Worker Date: 04/10/2022 00:46:13 Dictated By: JUVENTINO REGALADO DO
== END 2022-04-09 15:43 | disposition home or self-care (01) ==
LOC: SDC 10:37
PROVIDERS: ATTEND Surgery
DX: K81.1 Chronic cholecystitis (principal); K29.50 Unspecified chronic gastritis without bleeding; K82.8 Other specified diseases of gallbladder
CPT/HCPCS: 87081